=== PATIENT | male | born 1995 | race African-American/Black ===

== ENCOUNTER 2023-09-23 03:41 | Emergency (ER) | payer OTHER ==
[~2023-09-23] VITALS: Ht 185.4 cm; Wt 135.0 kg
[2023-09-23 03:55] VITALS: BP 131/89; PULSE 80; RESP 18; TEMP 97.8
[2023-09-23 04:09] LABS: APPEARANCE,URINE CLEAR (CLEAR); BILIRUBIN,URINE NEGATIVE (NEGATIVE); COLOR,URINE YELLOW (YELLOW); GLUCOSE, URINE (UA) NEGATIVE (NEGATIVE); KETONES,URINE =>150 mg/dL (NEGATIVE); LEUKOCYTE ESTERASE ,URINE NEGATIVE (NEGATIVE); NITRATE,URINE NEGATIVE (NEGATIVE); OCCULT BLOOD,URINE SMALL (NEGATIVE); PROTEIN,URINE 100-200,SEE CONFIRM mg/dL (NEGATIVE); SPECIFIC GRAVITIY, URINE 1.039 (1.003-1.030)
[2023-09-23 05:02] LABS: BACTERIA,URINE None Seen /HPF (None Seen); RBC,URINE 0-2 /HPF (0-2); SQUAMOUS EPITHELIAL CELL,UR None Seen /LPF (None Seen); SULFOSALICYLIC ACID,URINE 1+ (Negative); WBC,URINE None Seen /HPF (0-5)
[2023-09-23 05:03] LABS: MUCUS,URINE Few LPF (None Seen)
[2023-09-23] MEDS ORDERED: CIPR500T10 PO (05:25)
== END 2023-09-23 05:56 | disposition home or self-care (01) ==
LOC: EMS 03:43
DX: R30.0 Dysuria (principal)
CPT/HCPCS: 81001; 81002; 99283